=== PATIENT | male | born 2000 | race Caucasian/White ===

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

== ENCOUNTER 2023-01-18 14:53 | Emergency (ER) | payer BC ==
[2023-01-18] MEDS ORDERED: IBUPROFEN 600 MG TAB PO STA (15:33)
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
--- NOTE | 2023-01-18 16:36 | XR ---
EXAMINATION TYPE: XR shoulder complete LT DATE OF EXAM: 01/18/2023 CLINICAL HISTORY: Fall injury with pain. TECHNIQUE: Three views of the left shoulder are obtained. COMPARISON: None. FINDINGS: There is no acute fracture/dislocation evident in the left shoulder. The acromioclavicula r and glenohumeral joint spaces appear within normal limits. The visualized ribs are intact and unre markable. IMPRESSION: There is no acute fracture or dislocation in the left shoulder.
[2023-01-18 16:56] VITALS: BP 110/68; PULSE 68; RESP 17; TEMP 97.8
== END 2023-01-18 16:55 | disposition home or self-care (01) ==
LOC: EC 14:53
DX: S00.81XA Abrasion of other part of head, initial encounter (principal); M25.512 Pain in left shoulder; F17.200 Nicotine dependence, unspecified, uncomplicated; F12.90 Cannabis use, unspecified, uncomplicated; Z91.041 Radiographic dye allergy status; V28.49XA Other motorcycle driver injured in noncollision transport accident in traffic accident, initial encounter; Y92.410 Unspecified street and highway as the place of occurrence of the external cause; Y93.55 Activity, bike riding
CPT/HCPCS: 70450; 70486; 72125; 99285